=== PATIENT | male | born 1985 | race Caucasian/White ===

== ENCOUNTER → 2019-11-06 10:47 | Outpatient (BNVA) | payer MEDICAID, SELFPAY | PROVIDERS: PCP Internal Medicine; Visit Provider Nurse Practitioner | DX: R05 Cough (principal); R06.02 Shortness of breath | CPT/HCPCS: 71046 ==

== ENCOUNTER 2019-12-09 06:36 | Outpatient (CLI) | payer MEDICAID, SELFPAY ==
--- NOTE | 2019-12-09 07:15 | USCV_ITS ---
Tanner Tabor Age: 34 Gender: M : 1985 Exam Date: 12/09/2019 07:15 Ordering Phys: Glenis SalesP ROLLER Technologist: Leydi Love [place] [facility] [place]: dyspnea BP: / HR: 60 Rhythm: Sinus Technical Quality: Adequate MEASUREMENTS (Male / Female) Normal Values 2D ECHO LV Diastolic Diameter PLAX 4.5 cm 4.2 - 5.9 / 3.9 - 5.3 cm LV Systolic Diameter PLAX 2.1 cm IVS Diastolic Thickness 1.0 cm 0.6 - 1.0 / 0.6 - 0.9 cm IVS Systolic Thickness 2.4 cm LVPW Diastolic Thickness 0.9 cm 0.6 - 1.0 / 0.6 - 0.9 cm LVPW Systolic Thickness 1.5 cm LVOT Diameter 2.1 cm LV Ejection Fraction 2D Teich 84.0 % LV Ejection Fraction MOD 2C 73.9 % LV Ejection Fraction 2C AL 75.0 % LA Diameter 3.3 cm LA Width 3.6 cm LA Height 5.0 cm RA Width 3.5 cm RA Height 4.9 cm M-MODE LV Diastolic Diameter MM 5.5 cm 4.2 - 5.9 / 3.9 - 5.3 cm LV Systolic Diameter MM 3.1 cm LV Ejection Fraction MM Teich 73.1 % IVS Diastolic Thickness MM 1.1 cm 0.6 - 1.0 / 0.6 - 0.9 cm IVS Systolic Thickness MM 1.4 cm LVPW Diastolic Thickness MM 0.7 cm 0.6 - 1.0 / 0.6 - 0.9 cm LVPW Systolic Thickness MM 1.5 cm Aortic Annulus Diameter 3.1 cm LA Ao Ratio MM 1.1 MV E Point Septal Separation 0.6 cm DOPPLER AV Peak Velocity 127.0 cm/s LVOT Peak Velocity 101.0 cm/s AV Area Cont Eq vti 3.0 cm squared AV Area Cont Eq pk 2.8 cm squared MV Peak Velocity 84.0 cm/s MV Area PHT 4.0 cm squared Mitral E to A Ratio 1.6 MV E' Velocity 10.0 cm/s Mitral E to MV E' Ratio 8.6 Mitral E to LV E' Lateral Ratio 7.5 Mitral E to LV E' Septal Ratio 10.1 TR Peak Velocity 119.0 cm/s TR Peak Gradient 5.7 mmHg Right Atrial Pressure 3.0 mmHg Pulmonary Artery Systolic Pressu 8.7 mmHg PV Peak Velocity 98.0 cm/s RV Acceleration Time 0.1 s FINDINGS Left Ventricle Normal left ventricular cavity size. Normal left ventricular systolic function. No regional wall motion abnormalities. Left ventricular ejection fraction is estimated at 55 %. Normal diastolic function. Right Ventricle The right ventricle is normal in size and function. Right Atrium The right atrium is normal in size. Left Atrium The left atrium is normal in size. Mitral Valve Structurally normal mitral valve without significant stenosis or prolapse. There is no mitral regurgitation. Aortic Valve Structurally normal aortic valve without significant sclerosis or stenosis. There is no aortic regurgitation. Tricuspid Valve Structurally normal tricuspid valve without significant stenosis or regurgitation. Pulmonary artery systolic pressure is normal. Pulmonic Valve Structurally normal pulmonic valve without significant stenosis. There is no pulmonic regurgitation. Pericardium Normal pericardium without effusion. Aorta Normal ascending aorta dimension. CONCLUSIONS 1-Normal left ventricular cavity size. Normal left ventricular systolic function. No regional wall motion abnormalities. Left ventricular ejection fraction is estimated at 55 %. Normal diastolic function. 2-There is no pericardial effusion. 3-No significant valve abnormalities. 4-Pulmonary artery systolic pressure is within normal limits. 5-Right atrial pressure is around 5 mm of mercury. 6-There are no prior echocardiogram studies to compare. Binu Pederson MD (Electronically Signed) Final Date: 09 December 2019 20:41 S
== END 2019-12-09 06:37 | disposition home or self-care (01) ==
LOC: RAD 06:40
PROVIDERS: PCP Nurse Practitioner; Visit Provider Nurse Practitioner
DX: R06.02 Shortness of breath (principal)
CPT/HCPCS: 93306

== ENCOUNTER 2020-01-22 10:00 | Outpatient (CLI) | payer MEDICAID, SELFPAY ==
[2020-01-22 10:18] LABS: Basophils # 0.1 10^3/uL (0.0-0.1); Basophils % 0.8 %; Eosinophils # 0.2 10^3/uL (0.0-0.8); Eosinophils % 2.7 %; Hematocrit 45.6 % (42.0-52.0); Hemoglobin 14.5 g/dL (11.7-16.6); Lymphocytes # 2.4 10^3/uL (0.8-4.8); Lymphocytes % 36.2 %; Mean Corpuscular HGB Conc 31.8 g/dL (30.0-36.0); Mean Corpuscular Volume 94.2 fL (80-94); Mean Platelet Volume 12.1 fL (7.4-10.4); Monocytes # 0.5 10^3/uL (0.2-0.9); Monocytes % 7.3 %; Neutrophils # 3.5 10^3/uL (1.8-7.7); Neutrophils % 52.5 %; Nucleated Red Blood Cells % 0 %; Platelet Count 211 10^3/cmm (130-400); Red Blood Count 4.84 10^6/uL (4.1-5.3); Red Cell Distribution Width 13.7 % (12.1-15.1); White Blood Count 6.6 10^3/uL (4.0-10.0)
[2020-01-23 16:36] LABS: Alternaria Alternata (M6) Ige <0.10 kU/L; Alternaria Class 0; Bermuda Class 2; Bermuda Grass (G2) Ige 0.89 kU/L; Cat Dander (E1) Ige <0.10 kU/L; Cat Dander Class 0; Common Ragweed (Short) (W1) Ig 1.01 kU/L; D. Farinae Class 2; Dermatophagoides Class 3; Dermatophagoides Farinae (D2) 3.42 kU/L; Dermatophagoides Pteronyssinus 3.72 kU/L; Dog Dander (E5) Ige 0.19 kU/L; Dog Dander Class 0/1; Elm (T8) Ige 0.71 kU/L; Elm Class 2; English Plantain (W9) Ige 0.66 kU/L; English Plantain Class 1; House Dust (Hollister- Stier) 1.21 kU/L; House Dust Class 0/1; House Dust Class 2; Immunoglobulin E 877 kU/L (<OR=114); Immunoglobulin E 891 kU/L (<OR=114); Johnson Grass (G10) Ige 0.63 kU/L; Johnson Grass Cl 1; June Grass Class 2; Lamb'S Quarters (Goose Foot) 0.77 kU/L; Lamb'S Quarters Class 2; Maple Class 1; Meadow Fescue (G4) Ige 0.76 kU/L; Meadow Fescue Class 2; Mucor Racemosus Class 0; Oak (T7) Ige 0.66 kU/L; Oak Class 1; Orchard Grass (Cocksfoot) (G3) 0.73 kU/L; Penicillium Class 0; Penicillium Notatum (M1) Ige <0.10 kU/L; Perennial Rye Grass (G5) Ige 0.77 kU/L; Perennial Rye Grass Class 2; Ragweeed Class 2; Rough Marsh Elder (W16) Ige 0.76 kU/L; Rough Marsh Elder Class 2; Sweet Vernal Class 1; Sweet Vernal Grass (G1) Ige 0.68 kU/L; Timothy Grass Class 2
[2020-01-27 16:17] LABS: Aspergillus Fumigatus, Igg Ab, 8.3 mg/L (<=102)
== END 2020-01-22 10:01 | disposition home or self-care (01) ==
LOC: LAB 10:04
PROVIDERS: PCP Nurse Practitioner; Visit Provider Internal Medicine Critical Care Medicine
DX: J42 Unspecified chronic bronchitis (principal); R06.02 Shortness of breath
CPT/HCPCS: 36415; 82785; 85025; 86003